=== PATIENT | male | born 1985 ===

== ENCOUNTER 2017-09-22 05:57 | Emergency (ER) | payer SELFPAY ==
[2017-09-22 05:58] VITALS: BP 126/92
--- NOTE | 2017-09-22 06:09 | ER Report ---
History and Physical Time Seen By MD: 05:57 Hx. of Stated Complaint: PATIENT BROUGHT IN BY [facility] FOR LONG-TERM CLEARENCE, PATIENT INTOXICATED AND FOUND PASSED OUT UNDER A TRAILER, PATIENT HAS CUT IN BOTTOM LIP WELL. HPI/ROS CHIEF COMPLAINT: detention clearance. HISTORY OF PRESENT ILLNESS: This is a 31 year old male. He is here with the [employer] for detention clearance. Found sleeping under a trailer. Intoxicated. He has a cut on his lower lip. He has a little pain in neck and left shoulder area on his back. No other pain. No other complaints at this time. He does not remember how the cut on his lip happened. Allergies: Coded Allergies: No Known Drug Allergies (Unverified , 09/22/17) Home Meds No Active Prescriptions or Reported Meds Reviewed Nurses Notes: Yes Hx Substance Use Disorder: No Hx Alcohol Use: Yes Constitutional Vital Sign - Last 24 Hours 09/22/17 05:58 Temp 96.4 Pulse 82 Resp 16 B/P (MAP) 126/92 Pulse Ox 95 O2 Delivery Room Air Physical Exam General Appearance: The patient is alert, has no immediate need for airway protection and no current signs of toxicity. Eyes: Pupils equal and round, mild scleral injection. ENT: Cut on lower lip to the left, inside lip, non-gaping. Normal oral mucosa. Moist mucous membranes. Tympanic membranes are normal. Neck: Neck is supple and has some muscle tenderness on the left of the spine in the trapezius and paraspinous muscles, rated 5 on 1-10 scale. No midline tenderness. Respiratory: Chest is non tender, lungs are clear to auscultation. Cardiac: regular rate and rhythm Gastrointestinal: Abdomen is soft and non tender, no masses, bowel sounds normal. Musculoskeletal: Extremities have full range of motion. DIFFERENTIAL DIAGNOSIS: After history and physical exam differential diagnosis was considered for alcohol intoxication, lip laceration not requiring suturing and musculoskeletal pain in left trapezius area. Medical Decision Making ED Course/Re-evaluation ED Course No major problems noted. Cut on lip does not require repair. Some pain in left shoulder. No other problems. Cleared to be discharged with police to detention. Decision to Disposition Date: Sep 22, 2017 Decision to Disposition Time: 06:06 Depart Departure Latest Vital Signs Vital Signs Date Time Temp Pulse Resp B/P (MAP) Pulse Ox O2 Delivery O2 Flow Rate FiO2 09/22/17 05:58 96.4 82 16 126/92 95 Room Air Impression: Primary Impression: Alcohol intoxication Additional Impressions: Lip laceration Shoulder pain, left Condition: Condition Unchanged Disposition: [facility] TO LONG-TERM/CORRECTIONAL F New Scripts No Active Prescriptions or Reported Meds Patient Instructions: Alcohol Intoxication (ED), Laceration Without Closure (ED ), Musculoskeletal Pain (ED) Problem Qualifiers Primary Impression: Alcohol intoxication Complication of substance-induced condition: uncomplicated Qualified Codes: F10.920 - Alcohol use, unspecified with intoxication, uncomplicated Additional Impressions: Lip laceration Encounter type: initial encounter Qualified Codes: S01.511A - Laceration without foreign body of lip, initial encounter Shoulder pain, left Chronicity: unspecified Qualified Codes: M25.512 - Pain in left shoulder SATNAM WILKINS MD Sep 22, 2017 06:09
== END 2017-09-22 06:14 ==
LOC: ER 06:03
DX: F10.920 Alcohol use, unspecified with intoxication, uncomplicated (principal); S01.511A Laceration without foreign body of lip, initial encounter; M25.512 Pain in left shoulder
CPT/HCPCS: 99281